=== PATIENT | female | born 1935 | race Caucasian/White ===

== ENCOUNTER 2018-07-07 09:50 | Emergency (ER) | payer MEDICARE, BC ==
[~2018-07-07] VITALS: Ht 160 cm; Wt 47.0 kg
[2018-07-07 11:53] VITALS: BP 116/67
== END 2018-07-07 11:55 | disposition home or self-care (01) ==
LOC: ED 11:50
DX: S93.432A Sprain of tibiofibular ligament of left ankle, initial encounter (principal); X50.1XXA Overexertion from prolonged static or awkward postures, initial encounter; Y93.89 Activity, other specified; Y92.009 Unspecified place in unspecified non-institutional (private) residence as the place of occurrence of the external cause; Y99.8 Other external cause status
CPT/HCPCS: 29515; 99283

== ENCOUNTER 2018-07-08 11:58 | Emergency (ER) | payer MEDICARE, BC ==
[~2018-07-08] VITALS: Ht 160 cm; Wt 46.9 kg
[2018-07-08 12:27] VITALS: BP 128/60
--- NOTE | 2018-07-08 13:37 | NUR ---
Patient/Caregiver given discharge instructions and they have confirmed that they understand the instructions.
== END 2018-07-08 13:37 | disposition home or self-care (01) ==
LOC: ED 12:50
DX: S93.402D Sprain of unspecified ligament of left ankle, subsequent encounter (principal)
CPT/HCPCS: 99282

== ENCOUNTER 2019-06-03 09:51 | Emergency (ER) | payer MEDICARE, BC ==
[~2019-06-03] VITALS: Ht 160 cm; Wt 46.3 kg
[2019-06-03 09:56] VITALS: BP 131/59
--- NOTE | 2019-06-03 10:41 | NUR ---
TASK RN: Patient/Caregiver given discharge instructions and they have confirmed that they understand the instructions. Patient ambulatory with steady gait.
== END 2019-06-03 10:57 | disposition home or self-care (01) ==
LOC: ED 10:17
DX: J06.9 Acute upper respiratory infection, unspecified (principal)
CPT/HCPCS: 71046; 99283